=== PATIENT | female | born 1970 | race Caucasian/White ===

== ENCOUNTER → 2023-07-08 10:47 | Outpatient (REF) | payer OTHER, SELFPAY | LOC: RAD 10:47 | PROVIDERS: ATTENDING PHYSICIAN Family Medicine | DX: M25.532 Pain in left wrist (principal); M25.571 Pain in right ankle and joints of right foot | CPT/HCPCS: 73110; 73590; 73610 ==

== ENCOUNTER → 2023-07-16 15:55 | Outpatient (REF) | payer OTHER, SELFPAY | LOC: WDC 15:55 | PROVIDERS: ATTENDING PHYSICIAN Obstetrics & Gynecology; FAMILY PHYSICIAN Family Medicine | DX: Z12.31 Encounter for screening mammogram for malignant neoplasm of breast (principal) | CPT/HCPCS: 77063; 77067 ==

== ENCOUNTER → 2025-01-18 11:47 | Outpatient (REF) | payer OTHER, SELFPAY | LOC: WDC 11:47 | PROVIDERS: ATTENDING PHYSICIAN Obstetrics & Gynecology; FAMILY PHYSICIAN Family Medicine | DX: Z12.31 Encounter for screening mammogram for malignant neoplasm of breast (principal) | CPT/HCPCS: 77063; 77067 ==

== ENCOUNTER → 2025-02-22 12:25 | Outpatient (REF) | payer OTHER, SELFPAY | LOC: HWEVLT 12:25 | PROVIDERS: ATTENDING PHYSICIAN Radiology Vascular & Interventional Radiology | DX: I83.891 Varicose veins of right lower extremity with other complications (principal) | CPT/HCPCS: 93971 ==